=== PATIENT | male | born 1990 | race Caucasian/White ===

== ENCOUNTER 2017-03-08 20:33 | Emergency (ER) | payer OTHER ==
[~2017-03-08] VITALS: Ht 177.8 cm; Wt 77.1 kg
[~2017-03-08 20:33] MED LIST: ALBUTEROL0.09 MG/A1
[2017-03-08 20:48] VITALS: BP 145/91
[2017-03-08] MEDS ORDERED: LIDOCAINE 1% 500 MG/50 ML VIAL INJ ONE (21:55)
--- NOTE | 2017-03-08 22:15 | NUR ---
Note undone in EDM - 03/08/17 at 2224 by [facility] PATIENT IS A 26 Y/O MALE WHO PRESENTS TO THE ED C/O RIGHT INDEX FINGER LACERATION. PATIENT STATES, "I WAS AT WORK WITH A DRILL." NOTED 1 INCH LACERATION TO THE RIGHT INDEX FINGER LACERATION, BLEEDING CONTROLLED. SENSATION PRESENT, CAP REFILL IMMEDIATE, AND PRESENT MOTOR FUNCTION. PT STATES 11/12 THROBBING PAIN THAT DOES NOT RADIATE. PT AAOX4, RR EVEN/UNLABORED. SKIN IS DRY, COOL AND INTACT. ER MD DR. RICHARDS NOTIFIED. WILL CONTINUE TO MONITOR.
--- NOTE | 2017-03-08 22:16 | NUR ---
TO ER BED 4
--- NOTE | 2017-03-08 22:17 | NUR ---
PATIENT IS A 26 Y/O MALE WHO PRESENTS TO THE ED C/O RIGHT INDEX FINGER LACERATION. PATIENT STATES, "I WAS AT WORK WITH A DRILL." NOTED 1 INCH LACERATION TO THE RIGHT INDEX FINGER LACERATION, BLEEDING CONTROLLED. SENSATION PRESENT, CAP REFILL IMMEDIATE, AND PRESENT MOTOR FUNCTION. PT STATES 6/10 THROBBING PAIN THAT DOES NOT RADIATE. PT AAOX4, RR EVEN/UNLABORED. SKIN IS DRY, COOL AND INTACT. ER MD DR. RICHARDS NOTIFIED. WILL CONTINUE TO MONITOR.
--- NOTE | 2017-03-08 22:19 | NUR ---
TOPICAL LIDOCAINE TO HAND/FINGER ON-NADR AT THIS TIME
[2017-03-08] MEDS ORDERED: LIDOCAINE/PRILOCAINE 2.5% 30 GM TUBE TP ONE (22:20)
[2017-03-08] MEDS ORDERED: NEOMYCIN/POLYMYXIN/BACITRACIN 0.9 GM/1 PKT TP ONE (22:22)
[2017-03-09 00:26] VITALS: BP 132/82
--- NOTE | 2017-03-09 00:26 | NUR ---
Patient discharged with v/s stable. Written and verbal after care instructions given and explained. Patient alert, oriented and verbalized understanding of instructions. Ambulatory with steady gait. All questions addressed prior to discharge. ID band removed. Patient advised to follow up with PMD. Rx of TRAMADOL 50 MG & BACTRIM 800MG/160MG given. Patient educated on indication of medication including possible reaction and side effects. Opportunity to ask questions provided and answered. Addendum: 03/09/17 at 0030 by [facility] Patient discharged with v/s stable. Written and verbal after care instructions given and explained. Patient alert, oriented and verbalized understanding of instructions. Ambulatory with steady gait. All questions addressed prior to discharge. ID band removed. Patient advised to follow up with PMD. Rx of TRAMADOL 50 MG, BACTRIM 800MG/160MG & MOTRIN 800MG given. Patient educated on indication of medication including possible reaction and side effects. Opportunity to ask questions provided and answered.
== END 2017-03-09 00:26 | disposition home or self-care (01) ==
LOC: MED 20:33
DX: S61.210A Laceration without foreign body of right index finger without damage to nail, initial encounter (principal); J45.909 Unspecified asthma, uncomplicated; I10 Essential (primary) hypertension; W31.1XXA Contact with metalworking machines, initial encounter; Y93.89 Activity, other specified; Y92.89 Other specified places as the place of occurrence of the external cause; Y99.8 Other external cause status
CPT/HCPCS: 12001; 73140; 90471; 90715; 99284; J2001